=== PATIENT | female | born 1955 | race African-American/Black ===

== ENCOUNTER 2019-12-10 08:06 | Emergency (ER) | payer OTHER ==
[~2019-12-10] VITALS: Ht 162.6 cm; Wt 113.4 kg
[~2019-12-10 08:06] MED LIST: CELEBREX 200 M200 MG PO; FLONASE 0.05%50 MCG NS; PEPCID40 MG PO; PHENERGAN 25 MG25 M1 PO; PREDNISONE 10 M10 MG PO; PROVENTIL IH; TESSALON PERLE100 MG PO; TRAMADOL 50 MG50 MG PO; TRIAMTERENE-HC1 EAC1 PO; VENTOLIN17 GM INH
[2019-12-10 09:11] LABS: ABSOLUTE NEUTROPHILS 8.3 thou/uL (1.4-8.2); BASOPHILS 0.2 % (0.0-2.0); HEMATOCRIT 40.5 % (37.0-47.0); HEMOGLOBIN 13.7 gm/dL (12.0-15.0); LYMPHOCYTES 7.9 % (24.0-44.0); MCH 30.3 pg (26.0-34.0); MCHC 33.9 g/dL (28.0-37.0); MCV 89.4 fL (80.0-100.0); MONOCYTES 5.2 % (1.0-8.0); PLATELET COUNT 193 thou/uL (150-400); POLYS 86.7 % (36.0-66.0); RBC 4.53 mil/uL (4.20-5.00); RDW 13.5 % (10.5-14.5); WBC 9.5 thou/uL (4.0-11.0)
[2019-12-10 09:27] LABS: CALCIUM 8.9 mg/dL (8.5-10.1); CREATININE 1.8 mg/dL (0.6-1.0); POTASSIUM 3.7 mmol/L (3.5-5.1)
[2019-12-10 09:34] LABS: ALBUMIN 3.8 g/dL (3.4-5.0); TOTAL BILIRUBIN 0.4 mg/dL (0.2-1.0)
--- NOTE | 2019-12-10 10:23 | EKG ---
[facility] [place] [address] ELECTROCARDIOGRAM REPORT Name: UZAIR WHITE Room #: [facility]..#: [id number] Admission: Attend Phys: Discharge: Date of : 59 Report #: [id number] THIS REPORT FOR: cc: [facility] - Clinic physician Steve Padilla MD [facility] ~ THIS REPORT FOR: //name// [facility] ED Test Date: 2019-12-10 Test Time: 09:52:08 Pat Name: UZAIR CHIRAG DHILLON Department: Room: Gender: F Volunteer Services Assistant: ALLY CALLAHAN : 1955 Requested By: Osito Rodriguez Order Number: [id number] MD: Steve Lara Measurements Intervals [place] Rate: 78 P: 10 [place]: 165 QRS: -26 QRSD: 85 T: 2 QT: 378 QTc: 431 Interpretive Statements Sinus rhythm Left ventricular hypertrophy Baseline wander in lead(s) V6 Compared to ECG 05/01/2010 00:01:18 Left ventricular hypertrophy now present Electronically Signed On 12-10-2019 10:23:10 LICENSED OCCUPATIONAL THERAPY ASSISTANT by Steve Lara [email or web address] <ELECTRONICALLY SIGNED> By: Steve Lara MD, FACC 12/10/19 1023 Steve Lara MD, [facility] /EPI
[2019-12-10] MEDS ORDERED: PREDNISONE 20 M20 M1 PO (10:51)
[2019-12-10] MEDS ORDERED: PROAIR HFA8.5 GM INH (10:51)
[2019-12-10] MEDS ORDERED: ZPAK PO (10:51)
[2019-12-10 11:08] VITALS: BP 100/61
[2019-12-11] MEDS ORDERED: NYSTATIN100000 UNI SW&SWALLOW (20:55)
== END 2019-12-10 11:08 | disposition home or self-care (01) ==
LOC: ER 08:06
PROVIDERS: Emergency Medicine
DX: U07.1 COVID-19 (principal); I10 Essential (primary) hypertension; K21.9 Gastro-esophageal reflux disease without esophagitis; Z79.899 Other long term (current) drug therapy

== ENCOUNTER 2019-12-11 18:46 | Emergency (ER) | payer OTHER ==
[~2019-12-11] VITALS: Ht 167.6 cm; Wt 104.3 kg
[~2019-12-11 18:46] MED LIST changes: +PREDNISONE 20 M20 M1 PO; +PROAIR HFA8.5 GM INH; +ZPAK PO
[2019-12-11] MEDS ORDERED: NYSTATIN100000 UNI SW&SWALLOW (20:55)
[2019-12-11 21:23] VITALS: BP 127/80
== END 2019-12-11 21:23 | disposition home or self-care (01) ==
LOC: ER 18:46
DX: U07.1 COVID-19 (principal); R91.8 Other nonspecific abnormal finding of lung field; I10 Essential (primary) hypertension; K21.9 Gastro-esophageal reflux disease without esophagitis; Z79.899 Other long term (current) drug therapy; Z79.2 Long term (current) use of antibiotics

== ENCOUNTER 2020-10-04 23:36 | Emergency (ER) | payer OTHER ==
[~2020-10-04] VITALS: Ht 162.6 cm; Wt 86.2 kg
[~2020-10-04 23:36] MED LIST changes: +NYSTATIN100000 UNI SW&SWALLOW
[2020-10-04] MEDS ORDERED: TRAZODONE HCL50 MG PO (23:58)
[2020-10-04] MEDS ORDERED: LOSARTAN POTASS50 MG PO (23:58)
[2020-10-04] MEDS ORDERED: PREVACID30 MG PO (23:59)
[2020-10-05 01:50] LABS: ABSOLUTE NEUTROPHILS 4.5 thou/uL (1.4-8.2); BASOPHILS 0.7 % (0.0-2.0); EOSINOPHILS 2.1 % (0.0-3.0); HEMATOCRIT 38.6 % (37.0-47.0); HEMOGLOBIN 12.8 gm/dL (12.0-15.0); LYMPHOCYTES 34.9 % (24.0-44.0); MCH 30.4 pg (26.0-34.0); MCHC 33.1 g/dL (28.0-37.0); MCV 91.7 fL (80.0-100.0); MONOCYTES 4.1 % (1.0-8.0); PLATELET COUNT 197 thou/uL (150-400); POLYS 58.2 % (36.0-66.0); RBC 4.21 mil/uL (4.20-5.00); RDW 13.5 % (10.5-14.5); WBC 7.8 thou/uL (4.0-11.0)
[2020-10-05 02:08] LABS: CALCIUM 8.8 mg/dL (8.5-10.1); CREATININE 1.3 mg/dL (0.6-1.0); POTASSIUM 3.6 mmol/L (3.5-5.1)
[2020-10-05 05:13] VITALS: BP 124/83
--- NOTE | 2020-10-05 12:57 | EKG ---
[place] [address] [facility] [place] [address] ELECTROCARDIOGRAM REPORT Name: UZAIR MARTINI #: DEP LAVINIA MPrieto#: [id number] Admission: 10/04/20 Attend Phys: Discharge: 10/05/20 Date of : 59 Report #: [id number] [facility] ED Test Date: 2020-10-04 Test Time: 23:51:20 Pat Name: UZAIR COELHO Department: Room: Gender: F Shellfish Sorter: JOSE LUIS : 1955 Requested By: Bigg Tse Order Number: [id number] MD: Lb Maharaj Measurements Intervals [place] Rate: 79 P: 60 [place]: 179 QRS: -26 QRSD: 97 T: 13 QT: 370 QTc: 425 Interpretive Statements Sinus rhythm Leftward axis Poor R wave progression Compared to ECG 12/10/2019 09:52:08 No significant changes Electronically Signed On 10-05-2020 12:56:57 CDT by Lb Maharaj [email or web address] <ELECTRONICALLY SIGNED> By: Lb Maharaj MD, [facility] 10/05/20 1256 D: [id number] Lb Maharaj MD, FAC /EPI
--- NOTE | 2020-10-05 12:58 | EKG ---
[place] [address] [employer] [place] [address] ELECTROCARDIOGRAM REPORT Name: UZAIR MARTINI #: DEP LAVINIA MPrieto#: [id number] Admission: 10/04/20 Attend Phys: Discharge: 10/05/20 Date of : 59 Report #: [id number] [facility] ED Test Date: 2020-10-05 Test Time: 04:14:06 Pat Name: UZAIR COELHO Department: Room: Gender: F Manager Research: : 1955 Requested By: Bigg Tse Order Number: [id number] MD: Lb Maharaj Measurements Intervals [place] Rate: 65 P: 46 MA: 188 QRS: -15 QRSD: 103 T: 18 QT: 416 QTc: 433 Interpretive Statements Sinus rhythm Poor R wave progression Compared to ECG 12/10/2019 09:52:08 No significant changes Electronically Signed On 10-05-2020 12:58:43 CDT by Lb Maharaj [email or web address] <ELECTRONICALLY SIGNED> By: Lb Maharaj MD, [facility] 10/05/20 1258 0414 0414 Lb Maharaj MD, FACC /EPI
== END 2020-10-05 05:14 | disposition home or self-care (01) ==
LOC: ER 23:36
PROVIDERS: Student in an Organized Health Care Education/Training Program
DX: R07.89 Other chest pain (principal); Z20.822 Contact with and (suspected) exposure to COVID-19; I10 Essential (primary) hypertension; K21.9 Gastro-esophageal reflux disease without esophagitis; Z79.51 Long term (current) use of inhaled steroids; Z79.899 Other long term (current) drug therapy; Z79.1 Long term (current) use of non-steroidal anti-inflammatories (NSAID)